=== PATIENT | female | born 1980 | race Caucasian/White ===

== ENCOUNTER 2017-10-17 17:39 | Emergency (ER) | payer SELFPAY ==
[~2017-10-17] VITALS: Ht 152.4 cm; Wt 49.9 kg
[2017-10-17] MEDS ORDERED: BENADRYL PO (19:17)
[2017-10-17] MEDS ORDERED: methylPREDNISolone SOD SUCC 125 MG/2 ML VIAL ONE (19:28)
[2017-10-17] MEDS ORDERED: FAMOTIDINE. 20 MG/2 ML VIAL IV ONE ×2 (19:28→19:30)
[2017-10-17] MEDS ORDERED: IV NORMAL SALINE 1000 ML BAG IV ONE (19:30)
[2017-10-17] MEDS ORDERED: methylPREDNISolone SOD SUCC 125 MG/2 ML VIAL IV ONE (19:30)
[2017-10-17] MEDS ORDERED: diphenhydrAMINE 50 MG/1 ML VIAL ONE (20:36)
--- NOTE | 2017-10-17 20:40 | NUR ---
PATIENT STATES "I FEEL ALOT BETTER NOW."
[2017-10-17] MEDS ORDERED: diphenhydrAMINE 50 MG/1 ML VIAL IV ONE (20:45)
--- NOTE | 2017-10-17 20:48 | NUR ---
IV removed. Catheter intact and site benign. Pressure and 4x4 gauze applied to site. No bleeding noted.
--- NOTE | 2017-10-17 20:50 | NUR ---
Patient discharged to home in stable conditon [employer] TAKING PATIENT HOME. Written and verbal after care instructions given. Patient verbalizes understanding of instructions. WALKED OUT OF ER WITH NO DISTRESS NOTED
[2017-10-17 20:52] VITALS: BP 118/75
== END 2017-10-17 20:52 | disposition home or self-care (01) ==
LOC: ER 17:43
DX: L50.9 Urticaria, unspecified (principal); Z79.899 Other long term (current) drug therapy
CPT/HCPCS: 96374; 96375; 99284; A4663; J1200; J2930; J3490; J7030